=== PATIENT | male | born 2000 | race Caucasian/White ===

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

== ENCOUNTER 2020-06-09 02:55 | Emergency (ER) | payer OTHER ==
[~2020-06-09] VITALS: Ht 182.9 cm; Wt 65.7 kg
[~2020-06-09 02:55] MED LIST changes: +MECLIZINE HCL25 MG PO; +SCOPOLAMINE1 EACH TD
[2020-06-09] MEDS ORDERED: INSULIN AS100 UNIT/2 IV (03:21)
== END 2020-06-09 03:40 | disposition home or self-care (01) ==
LOC: ED 02:55
DX: S60.041A Contusion of right ring finger without damage to nail, initial encounter (principal); W22.8XXA Striking against or struck by other objects, initial encounter; E10.9 Type 1 diabetes mellitus without complications; I50.9 Heart failure, unspecified; Z88.0 Allergy status to penicillin; Z91.02 Food additives allergy status; Z79.4 Long term (current) use of insulin
CPT/HCPCS: 73130; 99283-25

== ENCOUNTER 2021-02-11 22:08 | Emergency (ER) | payer OTHER ==
[~2021-02-11] VITALS: Ht 182.9 cm; Wt 66.7 kg
[~2021-02-11 22:08] MED LIST changes: +INSULIN AS100 UNIT/2 IV
[2021-02-11] MEDS ORDERED: FIASP 100100 UNIT/2 SQ (22:23)
[2021-02-11] MEDS ORDERED: ZOFRAN (22:23)
[2021-02-11] MEDS ORDERED: LANTUS100 UNITS/ SUB-Q (22:23)
== END 2021-02-11 22:58 | disposition home or self-care (01) ==
LOC: ED 22:08
DX: S90.111A Contusion of right great toe without damage to nail, initial encounter (principal); W22.8XXA Striking against or struck by other objects, initial encounter; E10.9 Type 1 diabetes mellitus without complications; F43.10 Post-traumatic stress disorder, unspecified; I50.9 Heart failure, unspecified; Z87.891 Personal history of nicotine dependence; Z88.0 Allergy status to penicillin; Z91.048 Other nonmedicinal substance allergy status; Z79.4 Long term (current) use of insulin
CPT/HCPCS: 73660; 99283-25; A9270

== ENCOUNTER 2021-02-21 14:26 | Emergency (ER) | payer OTHER ==
[~2021-02-21] VITALS: Ht 182.9 cm; Wt 66.7 kg
[~2021-02-21 14:26] MED LIST changes: +FIASP 100100 UNIT/2 SQ; +LANTUS100 UNITS/ SUB-Q; +ZOFRAN
--- OUTSIDE RECORDS SUMMARY | 2021-02-21 14:34 | XMS ---
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 Justin has no Care Guidelines for this patient. [facility]: Visits indicate total known visits. ED/C VISIT TRACKING (12 MO.) [facility] COMPLAINT: - BLOOD IN URINE, ABD PAIN 02/11/2021 22:08 [facility] [place] TYPE: Emergency COMPLAINT: - RT SIDE TOE INJURY DIAGNOSES: - terminal makeup operator (current) use of insulin - Allergy status to penicillin - Striking against or struck by other objects, initial encounter - Other nonmedicinal substance allergy status - Heart failure, unspecified - Contusion of right great toe without damage to nail, initial encounter - Post-traumatic stress disorder, unspecified - Personal history of nicotine dependence - Type 1 diabetes mellitus without complications 06/09/2020 02:56 [facility] [place] TYPE: Emergency COMPLAINT: - SMASHED FINGER ON CART ON JOB DIAGNOSES: - terminal makeup operator (current) use of insulin - Striking against or struck by other objects, initial encounter - Allergy status to penicillin - Contusion of right ring finger without damage to nail, initial encounter - Food additives allergy status - Type 1 diabetes mellitus without complications - Heart failure, unspecified INPATIENT VISIT TRACKING (12 MO.) No inpatient visits to display in this time frame [id number]
[2021-02-21] MEDS ORDERED: FLOMAX0.4 MG PO (16:32)
[2021-02-21] MEDS ORDERED: HYDROCODON-ACE1 EA10 PO (16:32)
[2021-02-21] MEDS ORDERED: ONDANSETRON ODT4 MG PO (16:32)
[2021-02-21] MEDS ORDERED: LANTUS100 UNITS/ SUB-Q (16:33)
== END 2021-02-21 16:50 | disposition home or self-care (01) ==
LOC: ED 14:26
DX: N13.2 Hydronephrosis with renal and ureteral calculous obstruction (principal); E10.65 Type 1 diabetes mellitus with hyperglycemia; Z87.891 Personal history of nicotine dependence; Z88.0 Allergy status to penicillin; Z91.041 Radiographic dye allergy status
CPT/HCPCS: 74176; 80053; 81001; 85025; 96374; 99285-25; J1815; J7030

== ENCOUNTER 2021-03-31 07:36 | Emergency (ER) | payer OTHER ==
[~2021-03-31] VITALS: Ht 182.9 cm; Wt 66.8 kg
[~2021-03-31 07:36] MED LIST changes: +FLOMAX0.4 MG PO; +HYDROCODON-ACE1 EA10 PO; +ONDANSETRON ODT4 MG PO
== END 2021-03-31 11:23 | disposition home or self-care (01) ==
LOC: ED 07:36
DX: R11.2 Nausea with vomiting, unspecified (principal); E10.65 Type 1 diabetes mellitus with hyperglycemia; F98.8 Other specified behavioral and emotional disorders with onset usually occurring in childhood and adolescence; Z20.822 Contact with and (suspected) exposure to COVID-19; Z87.891 Personal history of nicotine dependence; Z88.0 Allergy status to penicillin; Z91.041 Radiographic dye allergy status; Z79.899 Other long term (current) drug therapy; Z79.4 Long term (current) use of insulin
CPT/HCPCS: 80053; 81001; 82010; 82803; 83690; 85025; 99284; C9803; J7030; U0003

== ENCOUNTER 2021-10-06 11:20 | Emergency (ER) | payer OTHER ==
[~2021-10-06] VITALS: Ht 182.9 cm; Wt 68.5 kg
== END 2021-10-06 13:56 | disposition home or self-care (01) ==
LOC: ED 11:20
DX: S61.532A Puncture wound without foreign body of left wrist, initial encounter (principal); S61.512A Laceration without foreign body of left wrist, initial encounter; E10.9 Type 1 diabetes mellitus without complications; I50.9 Heart failure, unspecified; Z87.891 Personal history of nicotine dependence; Z88.0 Allergy status to penicillin; Z88.8 Allergy status to other drugs, medicaments and biological substances; Z79.899 Other long term (current) drug therapy; Z79.4 Long term (current) use of insulin; W26.9XXA Contact with unspecified sharp object(s), initial encounter
CPT/HCPCS: 12001; 99283-25

== ENCOUNTER 2021-10-25 13:16 | Emergency (ER) | payer OTHER ==
[~2021-10-25] VITALS: Ht 182.9 cm; Wt 66.2 kg
--- OUTSIDE RECORDS SUMMARY | 2021-10-25 13:21 | XMS ---
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 Anisha VISIT COUNT (12 MO.) 5 [facility] TOTAL 5 NOTE: Visits indicate total known visits. ED/UCC VISIT TRACKING (12 MO.) 10/25/2021 13:19 [facility] [place] TYPE: Emergency COMPLAINT: - MULT COMPLAINTS 10/06/2021 11:21 [facility] [place] TYPE: Emergency COMPLAINT: - L ARM LACERATION/INJURY DIAGNOSES: - Allergy status to penicillin - nursing home (current) use of insulin - Laceration without foreign body of left wrist, initial encounter - Puncture wound without foreign body of left wrist, initial encounter - Heart failure, unspecified - Other fci (current) drug therapy - Allergy status to other drugs, medicaments and biological substances - Personal history of nicotine dependence - Type 1 diabetes mellitus without complications - Contact with unspecified sharp object(s), initial encounter 03/31/2021 07:37 [facility] [place] TYPE: Emergency COMPLAINT: - VOMITING BLOOD, NAUSEA DIAGNOSES: - Radiographic dye allergy status - Allergy status to penicillin - assistant terminal manager (current) use of insulin - Other specified behavioral and emotional disorders with onset usually occurring in childhood and adolescence - Other terminal block assembler (current) drug therapy - Nausea with vomiting, unspecified - Type 1 diabetes mellitus with hyperglycemia - Personal history of nicotine dependence 02/21/2021 14:27 [facility] [place] TYPE: Emergency COMPLAINT: - BLOOD IN URINE, ABD PAIN DIAGNOSES: - Hydronephrosis with renal and ureteral calculous obstruction - Allergy status to penicillin - Gross hematuria - Type 1 diabetes mellitus with hyperglycemia - Personal history of nicotine dependence - nursing home (current) use of insulin - Radiographic dye allergy status 02/11/2021 22:08 [facility] [place] TYPE: Emergency COMPLAINT: - RT SIDE TOE INJURY DIAGNOSES: - assistant terminal manager (current) use of insulin - Allergy status to penicillin - Striking against or struck by other objects, initial encounter - Other nonmedicinal substance allergy status - Heart failure, unspecified - Contusion of right great toe without damage to nail, initial encounter - Post-traumatic stress disorder, unspecified - Personal history of nicotine dependence - Type 1 diabetes mellitus without complications INPATIENT VISIT TRACKING (12 MO.) No inpatient visits to display in this time frame [email or web address]
[2021-10-25] MEDS ORDERED: HYDROCODON-ACE1 EA10 PO (17:47)
== END 2021-10-25 18:21 | disposition home or self-care (01) ==
LOC: ED 13:16
DX: U07.1 COVID-19 (principal); E10.9 Type 1 diabetes mellitus without complications; F43.10 Post-traumatic stress disorder, unspecified; I50.9 Heart failure, unspecified; Z88.0 Allergy status to penicillin; Z91.02 Food additives allergy status; Z79.899 Other long term (current) drug therapy; Z79.4 Long term (current) use of insulin
CPT/HCPCS: 80053; 81001; 82010; 82803; 85025; 87502; 87880; 96372; 99284; A9270; J1885; U0003

== ENCOUNTER 2022-06-08 16:26 | Emergency (ER) | payer OTHER ==
[~2022-06-08] VITALS: Ht 182.9 cm; Wt 69.5 kg
== END 2022-06-08 18:27 | disposition home or self-care (01) ==
LOC: ED 16:26
DX: S30.1XXA Contusion of abdominal wall, initial encounter (principal); E10.9 Type 1 diabetes mellitus without complications; I50.9 Heart failure, unspecified; Z87.442 Personal history of urinary calculi; Z87.891 Personal history of nicotine dependence; Z88.0 Allergy status to penicillin; Z91.02 Food additives allergy status; X58.XXXA Exposure to other specified factors, initial encounter
CPT/HCPCS: 81001; 99283

== ENCOUNTER 2024-02-13 23:57 | Emergency (ER) | payer BC, OTHER ==
[~2024-02-13] VITALS: Ht 182.9 cm; Wt 71.4 kg
[2024-02-14] MEDS ORDERED: IBLOOD GLUCOSE TEST STRIP 1 EA TEST XX ONE (00:15)
[2024-02-14] MEDS ORDERED: GABAPENTIN300 MG PO (00:16)
[2024-02-14 00:42] LABS: PH, VENOUS 7.381 (7.31-7.41)
[2024-02-14 00:48] LABS: INR 1.03 (0.80-1.30); PROTIME 13.1 Sec (11.2-14.2)
[2024-02-14 00:50] LABS: PARTIAL THROMBOPLASTIN TIME 26.4 Sec (22.9-41.3)
[2024-02-14 01:03] LABS: ALBUMIN 4.7 g/dL (3.4-5.0); ALBUMIN/GLOBULIN RATIO 1.47 (1.1-2.4); ALKALINE PHOSPHATASE 149 U/L (46-116); ALT (SGPT) 27 U/L (14-59); ANION GAP 12.5 (7-21); AST (SGOT) 16 U/L (15-37); BILIRUBIN, TOTAL 0.9 ng/dL (0.2-1.0); CALCIUM 9.5 mg/dL (8.5-10.1); CARBON DIOXIDE 30 mmol/L (21-32); CHLORIDE 101 mmol/L (98-107); CREATININE, SERUM 0.99 mg/dL (0.70-1.30); GLOMERULAR FILTRATION RATE,EST 108 mL/min (>60); POTASSIUM 3.5 mmol/L (3.5-5.1); PROTEIN, TOTAL 7.9 g/dL (6.4-8.2); UREA NITROGEN 10 mg/dL (7-18)
[2024-02-14 01:08] LABS: BASOPHILS 0.5 % (0-2); EOSINOPHILS 0.6 % (0-6); HEMATOCRIT 43.6 % (35.0-50.0); LYMPHOCYTES 44.6 % (24-44); MCH 29.9 (27-36); MCHC 34.5 g/dl (30-36); MCV 86.7 fl (81-99); MONOCYTES 10.5 % (0-12); NEUTROPHILS 43.8 % (39-80); PLATELET COUNT 138 K/uL (140-440); RBC 5.03 M/ul (4.3-5.7); RDW 12.6 (10.5-15.0)
[2024-02-14 01:58] LABS: AMPHETAMINES, URINE NEGATIVE (NEGATIVE); BARBITURATES, URINE NEGATIVE (NEGATIVE); BENZODIAZEPINE, URINE NEGATIVE (NEGATIVE); BUPRENORPHINE, URINE NEGATIVE (NEGATIVE); CANNABINOID, URINE NEGATIVE (NEGATIVE); COCAINE, URINE NEGATIVE (NEGATIVE); ECSTASY, URINE NEGATIVE (NEGATIVE); FENTANYL, URINE NEGATIVE (NEGATIVE); METHADONE, URINE NEGATIVE (NEGATIVE); OPIATES, URINE NEGATIVE (NEGATIVE); OXYCODONE, URINE NEGATIVE (NEGATIVE); PHENCYCLIDINE, URINE NEGATIVE (NEGATIVE)
[2024-02-14] MEDS ORDERED: PLAVIX75 MG PO (02:34)
[2024-02-14] MEDS ORDERED: LIPITOR20 MG PO (02:34)
[2024-02-14] MEDS ORDERED: ASPIRIN81 MG PO (02:34)
[2024-02-14] MEDS ORDERED: ASPIRIN 325 MG TAB PO ONE (03:30)
[2024-02-14] MEDS ORDERED: GLUCAGON,HUMAN RECOMBINANT 1 MG/ML VIAL IV ONE (03:30)
[2024-02-14] MEDS ORDERED: DEXTROSE 50% 50 ML SYR IV ONE (03:30)
[2024-02-14] MEDS ORDERED: ATORVASTATIN 20 MG TAB PO ONE (03:30)
[2024-02-14] MEDS ORDERED: CLOPIDOGREL BISULFATE 75 MG TAB PO ONE (03:30)
[2024-02-14] MEDS ORDERED: ASPIRIN 81 MG CHEW PO ONE (04:30)
[2024-02-14 04:48] VITALS: BP 135/95
--- NOTE | 2024-02-15 13:16 | EKG ---
[facility] [address] [place], [place] [address] Signed Normal sinus rhythm Normal ECG When compared with ECG of 17-DEC-2016 13:27, No significant change was found Confirmed by Ariana Wagner MD ([id number]) on 02/15/2024 1:16:25 PM Electronically Signed By: ARIANA WAGNER 02/15/24 1316 PATIENT NAME: JULIA CLEMENTE Electrocardiogram DATE OF : [birth year] PHYSICIAN: ARIANA WAGNER REPORT #: [id number] REPORT IS CONFIDENTIAL AND NOT TO BE RELEASED WITHOUT AUTHORIZATION
== END 2024-02-14 04:31 | disposition left against medical advice (07) ==
LOC: ED 23:57
PROVIDERS: Family Medicine
DX: G45.9 Transient cerebral ischemic attack, unspecified (principal); E10.9 Type 1 diabetes mellitus without complications; Z87.891 Personal history of nicotine dependence; Z88.0 Allergy status to penicillin; Z91.048 Other nonmedicinal substance allergy status; Z79.4 Long term (current) use of insulin
CPT/HCPCS: 36415; 70450; 70496; 70498; 80053; 80307; 82010; 82803; 84484; 85025; 85060; 85610; 85730; 99285-25; A9270; Q9967

== ENCOUNTER 2024-07-10 23:03 | Emergency (ER) | payer BC, OTHER ==
[~2024-07-10] VITALS: Ht 182.9 cm; Wt 68.0 kg
[~2024-07-10 23:03] MED LIST changes: +ASPIRIN81 MG PO; +GABAPENTIN300 MG PO; +LIPITOR20 MG PO; +PLAVIX75 MG PO
[2024-07-10] MEDS ORDERED: predniSONE 20 MG TAB PO ONE (23:45)
[2024-07-10] MEDS ORDERED: ALBUTEROL/IPRATROPIUM 3 ML NEB INH ONE (23:45)
[2024-07-11] MEDS ORDERED: METHYLPREDNISOLO4 M1 PO (00:04)
[2024-07-11] MEDS ORDERED: ALBUTEROL SULFATE 8 GM HOME.PACK INH ONE (00:15)
[2024-07-11] MEDS ORDERED: INHALER, ASSIST DEVICES 1 EACH SPACER MISC ONE (00:15)
[2024-07-11 00:26] VITALS: BP 118/63
== END 2024-07-11 00:26 | disposition home or self-care (01) ==
LOC: ED 23:03
DX: J20.8 Acute bronchitis due to other specified organisms (principal); J10.1 Influenza due to other identified influenza virus with other respiratory manifestations; E10.9 Type 1 diabetes mellitus without complications; Z87.891 Personal history of nicotine dependence; Z88.0 Allergy status to penicillin; Z91.048 Other nonmedicinal substance allergy status; Z79.899 Other long term (current) drug therapy; Z79.4 Long term (current) use of insulin
CPT/HCPCS: 71045; 94640; 99283-25; J7512